=== PATIENT | male | born 1955 | race Caucasian/White ===

== ENCOUNTER 2020-03-08 08:00 | Outpatient (CLI) | payer MEDICARE, OTHER | END 2020-03-08 23:59 | disposition home or self-care (01) | LOC: LAB 08:00 | PROVIDERS: ATTEND Emergency Medicine | DX: R50.81 Fever presenting with conditions classified elsewhere (principal); Z20.828 Contact with and (suspected) exposure to other viral communicable diseases | CPT/HCPCS: 81599 ==

== ENCOUNTER 2020-05-21 07:00 | Outpatient (CLI) | payer MEDICARE, OTHER | END 2020-05-21 23:59 | disposition home or self-care (01) | LOC: LAB.R 07:00 | PROVIDERS: ATTEND Physician Assistant | DX: N30.90 Cystitis, unspecified without hematuria (principal); R30.0 Dysuria | CPT/HCPCS: 81002; 87077; 87086; 87181 ==

== ENCOUNTER 2020-10-19 13:23 | Emergency (ER) | payer MEDICARE, OTHER ==
--- NOTE | 2020-10-19 14:04 | ED Physician Documentation ---
PD HPI SKIN - Stated complaint Stated Complaint: LUMP BEHIND EAR - Chief complaint Chief Complaint: Heent - History obtained from History obtained from: Patient - History of Present Illness Timing - onset: How many weeks ago (1) Timing - duration: Weeks (1) Timing - details: Gradual onset, Still present Location: Face Quality / character: Painful, Raised, Swelling. No: Draining Associated symptoms: No: Fever, Myalgias, Joint pain, Headache, Facial swelling, Dyspnea, Abd pain, N/V/D, Urinary sx Contributing factors: Other (wearing ear loop mask) Similar symptoms before: Has not had sx before Recently seen: Not recently seen - Additional information Additional information: 65 y/o male has noticed a lump behind his left ear that has become larger and has begun to get painful and irritating to the patient. He was unable to get anything to drain out of it after using a warm compress and poking it. He has noticed a lump smaller behind the right ear as well. He is wearing a mask with ear loops. He has not had fever and he does not recall having these "lumps" previously. Review of Systems Constitutional: denies: Fever Ears: denies: Ear pain Nose: denies: Congestion Throat: denies: Sore throat Respiratory: denies: Cough GI: denies: Vomiting Skin: reports: Other (mass behind the ears.). denies: Rash Musculoskeletal: denies: Neck pain, Back pain, Extremity pain Neurologic: denies: Generalized weakness, Focal weakness, Numbness PD PAST MEDICAL HISTORY - Past Medical History Past Medical History: Yes Cardiovascular: Hypertension : Benign prostate hypertrophy - Past Surgical History Past Surgical History: Yes General: Appendectomy Ortho: Knee replacement HEENT: Tonsil/Adenoidectomy - Present Medications Home Medications: Ambulatory Orders Medication Instructions Recorded Confirmed Sulfamethox/Trimeth 800/160 1 each PO BID #14 tab 10/19/20 [Bactrim Ds] - Allergies Allergies/Adverse Reactions: Allergies Allergy/AdvReac Type Severity Reaction Status Date / Time No Known Drug Allergies Allergy Verified 10/19/20 13:25 - Social History Does the pt smoke?: No Smoking Status: Never smoker Does the pt drink ETOH?: No Does the pt have substance abuse?: No - Immunizations Immunizations are current?: Yes PD ED PE NORMAL - Vitals Vital signs reviewed: Yes (hypertensive mild ) - General General: Alert and oriented X 3, No acute distress, Well developed/nourished - HEENT HEENT: Atraumatic, PERRL, EOMI, Other (There is a sebaceous cyst really 2 small cysts behind the left ear. They are firm and tender with overlying ) - Neck Neck: Supple, no meningeal sign - Derm Derm: Normal color, Warm and dry, No rash - Extremities Extremities: No deformity, No edema - Neuro Neuro: Alert and oriented X 3, calf skinner 2-12 intact, No motor deficit, No sensory deficit, Normal speech Eye Opening: Spontaneous Motor: Obeys Commands Verbal: Oriented GCS Score: 15 - Psych Psych: Normal mood, Normal affect Results - Vitals Vitals: Vital Signs - 24 hr 10/19/20 10/19/20 13:26 14:09 Temperature 36 C L 36.5 C Heart Rate 66 62 Respiratory 16 16 Rate Blood Pressure 157/74 H 150/72 H O2 Saturation 96 98 Oxygen O2 Source Room air PD MEDICAL DECISION MAKING - ED course Complexity details: considered differential, d/w patient ED course: 65-year-old male with what appears to be a an infected sebaceous cyst behind his left ear has a sebaceous cyst behind the right ear as well we will place him today on some Septra I discussed with the patient the possibility of ripening and the need for return for I&D and the natural history of sebaceous cyst including surgical removal if we are able to get this infection under control. Departure - Departure Disposition: 01 Home, Self Care Clinical Impression: Infected sebaceous cyst Condition: Stable Instructions: ED Cyst Sebaceous Infec Abx Tx Follow-Up: MITCHELL HOWELL MD, PHD [Primary Care Provider] - [facility] [Provider Group] Prescriptions: Sulfamethox/Trimeth 800/160 [Bactrim Ds] 1 each PO BID #14 tab Comments: Today it appears you have a sebaceous cyst behind each of your ears. The one on the left is much larger and appears infected. The recommendation is to use a warm compress for about 10 minutes 2-3 times per day and take the antibiotic as prescribed. 1 of 2 things will happen, it will shrink and get walled off, or it will ripen and require incision and drainage. If the area becomes boggy and fluctuant return to the emergency department for incision and drainage. If you have increasing pain and enlargement of the area return to the emergency department for reevaluation. Discharge Date/Time: 10/19/20 14:09
[2020-10-19 14:11] VITALS: BP 150/72
== END 2020-10-19 14:09 | disposition home or self-care (01) ==
LOC: ED 13:23
DX: L72.3 Sebaceous cyst (principal); L08.9 Local infection of the skin and subcutaneous tissue, unspecified; I10 Essential (primary) hypertension
CPT/HCPCS: 99282; 99284

== ENCOUNTER 2023-10-24 11:17 | Outpatient (CLI) | payer MEDICARE, OTHER ==
--- NOTE | 2023-10-24 12:09 | XRAY Report ---
PROCEDURE: Lumbar Spine w/Flex/Ext 6+V INDICATIONS: SP LUMBAR LAMINECTOMY TECHNIQUE: AP & Lateral views of the lumbar spine were acquired, followed by flexion & extension mary ding views of the lumbar spine. COMPARISON: None. FINDINGS: Bones: 5 [id number] vertebrae are present. There is normal bony alignment. Multilevel degenera tive disc and foraminal narrowing are present most. L5-S1. Prominent anterior osteophytes are present most severe at L1 and L3. No vertebral body compression fractures. No suspicious bony lesions. Po sterior laminectomy changes. Soft tissues: Overlying bowel gas pattern is normal. No suspicious soft tissue calcifications. Flexion/extension: There is decreased range of motion, with preserved normal alignment. IMPRESSION: Multilevel degenerative changes most severe at L5-S1. Decreased range of motion. Reviewed by: Benita Gonzalez MD on 10/24/2023 12:08 PM PST Approved by: Benita Gonzalez MD on 10/24/2023 12:08 PM [facility] Station ID: [id number]
== END 2023-10-24 11:18 | disposition home or self-care (01) ==
LOC: DI.S 11:17
PROVIDERS: ATTEND Orthopaedic Surgery Orthopaedic Surgery of the Spine
DX: Z01.818 Encounter for other preprocedural examination (principal); M47.817 Spondylosis without myelopathy or radiculopathy, lumbosacral region; M47.816 Spondylosis without myelopathy or radiculopathy, lumbar region; M51.37 Other intervertebral disc degeneration, lumbosacral region; M51.36 Other intervertebral disc degeneration, lumbar region

== ENCOUNTER 2023-11-06 10:56 | Outpatient (CLI) | payer MEDICARE, OTHER ==
[2023-11-06 11:08] LABS: BASOPHILS # (AUTO) 0.1 10^3/uL (0.0-0.1); BASOPHILS % (AUTO) 1.2 %; EOSINOPHILS # (AUTO) 0.1 10^3/uL (0.0-0.7); EOSINOPHILS % (AUTO) 0.9 %; HCT - HEMATOCRIT 51.4 % (42.0-52.0); HGB - HEMOGLOBIN 16.6 g/dL (14.0-18.0); LYMPHOCYTES # (AUTO) 1.1 10^3/uL (1.5-3.5); LYMPHOCYTES % (AUTO) 18.2 %; MEAN CORPUSCULAR HEMOGLOBIN 28.8 pg (27.0-31.0); MEAN CORPUSCULAR HGB CONC 32.3 g/dL (32.0-36.0); MEAN CORPUSCULAR VOLUME 89.1 fL (80.0-94.0); MEAN PLATELET VOLUME 9.4 fL (7.4-11.4); MONOCYTES # (AUTO) 0.5 10^3/uL (0.0-1.0); MONOCYTES % (AUTO) 8.2 %; NEUTROPHILS # (AUTO) 4.2 10^3/uL (1.5-6.6); NEUTROPHILS % (AUTO) 71.3 %; PLT - PLATELET COUNT 201 10^3/uL (130-450); RED BLOOD COUNT 5.77 10^6/uL (4.70-6.10); RED CELL DISTRIBUTION WIDTH 13.3 % (12.0-15.0); WHITE BLOOD COUNT 5.9 x10^3/uL (4.8-10.8)
[2023-11-06 12:12] LABS: CALCIUM 9.8 mg/dL (8.5-10.3); CREATININE 0.7 mg/dL (0.6-1.3); POTASSIUM 4.7 mmol/L (3.5-4.5)
== END 2023-11-06 10:57 | disposition home or self-care (01) ==
LOC: LAB 10:56
PROVIDERS: ATTEND Orthopaedic Surgery Orthopaedic Surgery of the Spine
DX: Z01.818 Encounter for other preprocedural examination (principal)
CPT/HCPCS: 36415; 80048; 85025; 85027

== ENCOUNTER 2023-11-06 10:58 | Outpatient (CLI) | payer MEDICARE, OTHER | END 2023-11-06 10:59 | disposition home or self-care (01) | LOC: RT 10:58 | PROVIDERS: ATTEND Orthopaedic Surgery Orthopaedic Surgery of the Spine | DX: Z01.818 Encounter for other preprocedural examination (principal) | CPT/HCPCS: 36415; 80048; 85025; 85027; 93005 ==